=== PATIENT | male | born 1945 | race African-American/Black ===

== ENCOUNTER → 2020-07-29 13:11 | Outpatient (CLI) | payer MEDICARE, SELFPAY ==
--- NOTE | ~2020-07-29 | MR_ITS ---
EXAMINATION: MR knee LT wo con DATE: 07/29/2020 14:01 INDICATION: Left knee pain. Meniscal tear. TECHNIQUE: Magnetic resonance imaging (MRI) of the left knee was performed without intravenous contra st. Sequences included coronal PD-weighted FSE, coronal PD-weighted FS FSE, sagittal T2-weighted FSE , sagittal PD-weighted FS FSE and axial PD weighted fat saturated FSE. COMPARISON: None. FINDINGS: Medial compartment: Complex medial meniscal tear which sensitive in the anterior to the posterior horn. Medial extrusion of the small body of the medial meniscus suggesting secondary degeneration. There is extensive cartil age loss in place approaching full-thickness with underlying subarticular edema along the anterior an d medial two thirds of the medial tibial plateau and along the anterior weightbearing medial femoral condyle. Chondral ulceration and deep fissuring along the central to posterior weightbearing medial f emoral condyle with flat subchondral osteophyte at the central aspect of the posterior weightbearing medial femoral condyle. There are also moderate to large marginal osteophytes along the posterior asp ect of the medial tibial plateau and medial femoral condyle. Lateral compartment: Lateral meniscus is normal. Partial-thickness cartilage loss with mild scattered chondral surface reg ularity along the weightbearing lateral femoral condyle. Additional partial thickness cartilage loss with smooth chondral surface along the lateral side of the lateral tibial plateau. Small marginal ost eophytes are present. Patellofemoral compartment: Partial-thickness patellar cartilage loss with relatively smooth chondral surface. Small cysts flat c entral subchondral osteophytes are seen at the cephalad aspect of the patellar apical ridge and later al facet. Additional extensive partial-thickness trochlear cartilage loss with regions of deep chondr al ulceration and fissuring with chondral surface regular date at the trochlear groove and medial tro chlea with underlying central subchondral osteophytes and at the medial side of the lateral trochlea where there is minimal underlying cortical irregularity. Small to moderate-sized patellofemoral stephen nal osteophytes are present. Ligaments and tendons: Posterior cruciate ligament is normal. The anterior cruciate ligament demonstrates a normal angle rel ative to Blumenstaat's line but with diffuse increased intrasubstance signal consistent with mucoid d egeneration without discrete tear. Prominent marginal osteophyte arising from the medial aspect of th e anterior weightbearing lateral femoral condyle extends into the intercondylar notch abutting the an terior margin of the anterior cruciate ligament. The fibular collateral ligament is normal. Pellegrin i-Stieda lesion with prominent heterotopic ossification within the thickened proximal aspect of the m edial collateral ligament consistent with sequela of chronic sprain. Mild tendinopathy and small enth esophytes at the patellar and anterior tibial tuberosity insertions of the patellar and distal vita ceps tendons. The visualized medial and lateral hamstring tendons as well as the iliotibial band are normal. Fluid: Moderate-sized left knee joint effusion with mild synovitis at the suprapatellar pouch. 9 x 5 mm loos e osteochondral body versus less likely pedunculated osteophyte at the posterior recess of the latera l compartment along the posterolateral margin of the proximal anterior cruciate ligament. No other lo ose osteochondral bodies identified. Osseous/other: No fracture or pathologic marrow replacing process. IMPRESSION: 1. Complex medial meniscal tear. 2. 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 3. 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
--- NOTE | ~2020-07-29 | XR_ITS ---
XR chest 2V 07/29/2020 14:04 Indication: Chest pain Procedure: PA and lateral views of the chest Comparison: No prior studies for comparison. Findings: Heart size normal. Status post median sternotomy for CABG. No focal air space disease, pulm onary edema, pleural effusion or suspected pneumothorax. Impression: 1: No acute cardiopulmonary disease. Reviewed, dictated and finalized at location A. Impression: 1: No acute cardiopulmonary disease.
== END ==
PROVIDERS: PCP Internal Medicine; Visit Provider Internal Medicine
DX: R07.89 Other chest pain (principal); S83.242A Other tear of medial meniscus, current injury, left knee, initial encounter; M25.462 Effusion, left knee
CPT/HCPCS: 71046; 73721